=== PATIENT | male | born 1990 | race African-American/Black ===

== ENCOUNTER 2018-09-19 08:45 | Emergency (ER) | payer BC, OTHER ==
[~2018-09-19] VITALS: Ht 177.8 cm; Wt 90.7 kg
[2018-09-19 08:46] VITALS: BP 123/76
[2018-09-19] MEDS ORDERED: PREDNISONE 20 M20 MG PO (09:02)
[2018-09-19] MEDS ORDERED: KEFLEX500 M1 PO (09:05)
== END 2018-09-19 09:06 | disposition home or self-care (01) ==
LOC: ER 08:45
DX: K12.2 Cellulitis and abscess of mouth (principal)